=== PATIENT | female | born 1950 | race Caucasian/White ===

== ENCOUNTER → 2017-07-26 | Outpatient (CLI) | payer MEDICARE, BC ==
--- NOTE | 2017-07-26 16:13 | RAD ---
Thyroid ultrasound, 07/26/2017: History: Thyroid enlargement The thyroid gland is small and not clearly defined on this study. No mass was identified in the thyroid region. If clinical concern persists, CT scanning is suggested for further evaluation.
== END | disposition home or self-care (01) ==
LOC: US 13:58
PROVIDERS: ATTEND Nurse Practitioner Family
DX: E04.8 Other specified nontoxic goiter (principal)
CPT/HCPCS: 76536

== ENCOUNTER 2018-02-16 08:22 | Inpatient (IN) | payer MEDICARE, BC ==
[~2018-02-16] VITALS: Ht 170.2 cm; Wt 108.0 kg
[2018-02-16 09:08] VITALS: BP 154/74
[2018-02-16 09:26] LABS: BASO # 0.1 x10^3/uL (0.0-0.2); BASO % 0 % (0-3); EOS # 0.6 x10^3/uL (0.0-0.7); EOS % 5 % (0-3); HEMOGLOBIN 14.2 g/dL (12.0-15.5); LYMPH # 1.4 x10^3/uL (1.0-4.8); LYMPH % 11 % (24-48); MEAN CORPUSCULAR HEMOGLOBIN 29 pg (25-35); MEAN CORPUSCULAR HGB CONC 33 g/dL (31-37); MEAN CORPUSCULAR VOLUME 89 fL (79-100); MONO # 0.8 x10^3/uL (0.0-1.1); MONO % 6 % (0-9); NEUT % 78 % (31-73); PLATELET COUNT 238 x10^3/uL (140-400); RED BLOOD COUNT 4.83 x10^6/uL (3.50-5.40); RED CELL DISTRIBUTION WIDTH 14.1 % (11.5-14.5); WHITE BLOOD COUNT 12.8 x10^3/uL (4.0-11.0)
[2018-02-16 09:39] LABS: ALBUMIN 3.7 g/dL (3.4-5.0); ALBUMIN/GLOBULIN RATIO 0.9 (1.0-1.7); CREATININE 0.8 mg/dL (0.6-1.0); GFR 70.9; POTASSIUM 3.7 mmol/L (3.5-5.1); TOTAL BILIRUBIN 0.3 mg/dL (0.2-1.0); TOTAL PROTEIN 7.8 g/dL (6.4-8.2)
[2018-02-16] MEDS ORDERED: ZOLPIDEM 5 MG TABLET. PO PRN (09:45)
[2018-02-16] MEDS ORDERED: methylPREDNISolone SOD SUCC PF 125 MG/2 ML VIAL. IV ONE (10:00)
[2018-02-16] MEDS: DOXYCYCLINE HYCLATE 100 MG TABLET PO SCH ×2 (10:13→20:57)
[2018-02-16] MEDS: IPRATRPIUM/ALBUTEROL 0.5/2.5MG 3 ML NEBU. NEB SCH ×4 (10:29→20:31)
--- NOTE | 2018-02-16 10:48 | RAD ---
Chest, 2 views, 02/16/2018: HISTORY: Shortness of breath The heart size is normal. There are a few scattered parenchymal scars. No pulmonary consolidation is seen. There is no evidence of pleural fluid. Moderate hypertrophic spurring is present in the spine. IMPRESSION: No acute cardiopulmonary abnormality is detected. Electronically signed by: Fazal Morejon MD (02/16/2018 10:45 AM) [facility]
[2018-02-16 11:05] LABS: INFLUENZA A PATIENT NEGATIVE (NEGATIVE); INFLUENZA B PATIENT NEGATIVE (NEGATIVE)
[2018-02-16] MEDS ORDERED: IOHEXOL 300 MG/ML 75 ML VIAL. IV ONE (11:30)
[2018-02-16] MEDS ORDERED: AMLO10TA6 PO (12:14)
[2018-02-16] MEDS ORDERED: IRBE1TAB5 PO (12:14)
[2018-02-16] MEDS ORDERED: ALBU8.5H8 INH (12:14)
[2018-02-16] MEDS ORDERED: LEVO150T5 PO (12:14)
[2018-02-16] MEDS ORDERED: MONT10TA9 PO (12:14)
[2018-02-16] MEDS ORDERED: BUDE10.22 IH (12:14)
[2018-02-16] MEDS ORDERED: CHOL500016 PO (12:16)
[2018-02-16] MEDS ORDERED: ASPI-630 PO (12:16)
[2018-02-16] MEDS ORDERED: GLUC100018 PO (12:16)
--- NOTE | 2018-02-16 12:39 | RAD ---
PQRS Compliance Statement: One or more of the following individualized dose reduction techniques were utilized for this examination: 1. Automated exposure control 2. Adjustment of the mA and/or kV according to patient size 3. Use of iterative reconstruction technique CT CHEST WITH CONTRAST, PULMONARY ANGIOGRAM History: SHORT OF AIR, ELEVATED D-DIMER. Comparison: None. Technique: Helical CT of the chest was performed after the administration of 75 cc Omnipaque 300 intravenous contrast according to PE protocol. Axial and coronal reconstructions were obtained. 3-D MIP images were constructed to better evaluate the pulmonary arteries. Findings: Pulmonary arteries are adequately opacified to the segmental pulmonary artery level. There is no evidence of pulmonary embolism. Subsegmental pulmonary arteries cannot be accurately evaluated. No thoracic aortic dissection. The great vessels are normal caliber. There is coronary artery disease. There is mitral annular calcification. The breasts are incompletely imaged. There are 4 small oval or round nodules in the left breast. There is no axillary adenopathy. Bilateral hilar lymph nodes are upper limits of normal. Cardiac size is normal, no pericardial effusion. There is no pleural effusion. Central airways are patent. Respiratory motion artifact limits evaluation of the lungs. There is a 5 mm nodule in the right middle lobe, image 66. There is a 5 mm nodule in the anterior right lower lobe, image 73. There is minimal atelectasis in the posterior right lower lobe. There is bilateral lower lobe peribronchial thickening. 5 mm irregular nodule in the posterior left upper lobe, image 32. Atelectasis or scarring in the inferior lingula. 6 mm nodule in the left lower lobe posteriorly, image 73. 3 mm nodule left lower lobe, image 59. Cholecystectomy. No compression fracture in the thoracic spine. IMPRESSION: 1. There is no CT evidence of pulmonary embolus to the segmental pulmonary artery level. 2. Mild bilateral lower lobe bronchitis. 3. There are several noncalcified pulmonary nodules bilaterally. Suggest noncontrast CT chest follow-up in 12 months per Fleischner Society guidelines. 4. There are 4 small oval or round nodules in the left breast. Recommend further evaluation with outpatient bilateral mammogram if not recently performed. Electronically signed by: Obie Alcantara MD (02/16/2018 12:35 PM) [id number]
[2018-02-16] MEDS ORDERED: ALBUTEROL SULFATE 8GM INHALER. INH PRN (12:45)
[2018-02-16 13:48] VITALS: BP 169/70
[2018-02-16] MEDS: ALBUTEROL SULFATE 2.5 MG/3 ML NEBU. NEB PRN (13:51)
[2018-02-16] MEDS: methylPREDNISolone SOD SUCC PF 40 MG/ML VIAL. IV SCH ×2 (13:52→22:27)
[2018-02-16] MEDS: LOSARTAN 50 MG TABLET. PO SCH (13:53)
[2018-02-16] MEDS: ASPIRIN 81 MG TAB.CHEW PO SCH (13:53)
[2018-02-16] MEDS: hydroCHLOROthiazide 12.5 MG CAPSULE PO SCH (13:53)
[2018-02-16] MEDS: amLODIPine BESYLATE 10 MG TABLET PO SCH (13:53)
[2018-02-16] MEDS: LEVOTHYROXINE 150 MCG TABLET PO SCH (16:45)
[2018-02-16] MEDS ORDERED: ALBUTEROL SULFATE 2.5 MG/3 ML NEBU. NEB SCH (18:00)
[2018-02-16 20:15] VITALS: BP 124/70
[2018-02-16] MEDS: BUDESONIDE 0.5 MG/2 ML NEBU NEB SCH (20:31)
[2018-02-16] MEDS: MONTELUKAST 10 MG TABLET. PO SCH (20:57)
[2018-02-16] MEDS: LACTOBACILLUS RHAMNOSUS GG 1 CAPSULE. PO SCH (20:57)
[2018-02-16] MEDS ORDERED: NON FORMULARY ITEM (Budesonide/Formoterol Fumarate (Symbicort 80-4.5 Mcg Inhaler) 2 PUFF) IH SCH (21:00)
[2018-02-16 23:01] VITALS: BP 143/71
[2018-02-17] MEDS: IPRATRPIUM/ALBUTEROL 0.5/2.5MG 3 ML NEBU. NEB SCH ×4 (04:21→21:05)
[2018-02-17] MEDS: ACETAMINOPHEN 500 MG TABLET PO PRN (04:21)
[2018-02-17] MEDS ORDERED: LEVOTHYROXINE 150 MCG TABLET PO SCH (06:00)
[2018-02-17 06:05] VITALS: BP 137/73
[2018-02-17] MEDS: methylPREDNISolone SOD SUCC PF 40 MG/ML VIAL. IV SCH ×3 (06:29→22:16)
[2018-02-17] MEDS: LEVOTHYROXINE 150 MCG TABLET PO SCH (06:29)
[2018-02-17 06:56] LABS: BASO % 0 % (0-3); EOS % 0 % (0-3); HEMATOCRIT 42.6 % (36.0-47.0); LYMPH # 1.2 x10^3/uL (1.0-4.8); LYMPH % 6 % (24-48); MEAN CORPUSCULAR HEMOGLOBIN 29 pg (25-35); MEAN CORPUSCULAR HGB CONC 33 g/dL (31-37); MEAN CORPUSCULAR VOLUME 89 fL (79-100); MONO # 0.5 x10^3/uL (0.0-1.1); MONO % 2 % (0-9); NEUT # 18.1 x10^3uL (1.8-7.7); NEUT % 91 % (31-73); PLATELET COUNT 277 x10^3/uL (140-400); RED BLOOD COUNT 4.78 x10^6/uL (3.50-5.40); RED CELL DISTRIBUTION WIDTH 14.3 % (11.5-14.5); WHITE BLOOD COUNT 19.8 x10^3/uL (4.0-11.0)
[2018-02-17 07:24] LABS: CALCIUM 9.3 mg/dL (8.5-10.1); CREATININE 0.8 mg/dL (0.6-1.0); GFR 70.9; POTASSIUM 3.9 mmol/L (3.5-5.1)
[2018-02-17 07:50] LABS: % BANDS 6 % (0-9); % BASOS 0 % (0-3); % EOS 0 % (0-5); % LYMPHS 5 % (24-48); % MONOS 1 % (0-10); % SEGS 88 % (35-66); PLT ESTIMATE ADEQUATE (ADEQUATE)
[2018-02-17] MEDS: LACTOBACILLUS RHAMNOSUS GG 1 CAPSULE. PO SCH ×2 (08:51→22:28)
[2018-02-17] MEDS: hydroCHLOROthiazide 12.5 MG CAPSULE PO SCH (08:51)
[2018-02-17] MEDS: amLODIPine BESYLATE 10 MG TABLET PO SCH (08:51)
[2018-02-17] MEDS: LOSARTAN 50 MG TABLET. PO SCH (08:51)
[2018-02-17] MEDS: CHOLECALCIFEROL (VITAMIN D3) 1,000 UNIT TABLET PO SCH (08:52)
[2018-02-17] MEDS: DOXYCYCLINE HYCLATE 100 MG TABLET PO SCH ×2 (08:52→22:28)
[2018-02-17] MEDS: ASPIRIN 81 MG TAB.CHEW PO SCH (08:52)
[2018-02-17] MEDS: ROFLUMILAST 500 MCG TABLET PO SCH (08:55)
[2018-02-17] MEDS: GLUCOSAMINE 500 MG CAPSULE PO SCH (08:56)
[2018-02-17] MEDS ORDERED: ZOLPIDEM 5 MG TABLET. PO PRN (10:30)
[2018-02-17] MEDS: BUDESONIDE 0.5 MG/2 ML NEBU NEB SCH ×2 (11:11→21:05)
[2018-02-17 12:03] VITALS: BP 135/72
[2018-02-17] MEDS: ALBUTEROL SULFATE 2.5 MG/3 ML NEBU. NEB PRN (14:42)
[2018-02-17 15:19] VITALS: BP 159/69
[2018-02-17 18:59] VITALS: BP 135/67
--- NOTE | 2018-02-17 19:10 | PN ---
DATE: SUBJECTIVE: A 68-year-old female in with acute exacerbation of asthma. The patient's white count went up probably from prednisone. CTA was negative, however, did note some other elements of noncalcified pulmonary nodules. There are 4 cm oval and round nodules in the left breast and those need to be followed up as an outpatient. The patient is breathing better, feels somewhat better. OBJECTIVE: VITAL SIGNS: Blood pressure 159/70, respiratory rate 24, pulse 90, afebrile. The patient's oxygen saturation has been on 2 liters up to 92%. The patient still notes shortness of breath, but she is markedly improved. GENERAL: The patient is alert and oriented. LUNGS: Diminished, clear than they have been, but still markedly diminished. She will be continued to be monitored carefully on that. CARDIOVASCULAR: Regular sinus rhythm. ABDOMEN: Soft, nontender. As noted, improving, but still needs aggressive IV therapy as noted. IMPRESSION: Acute respiratory failure, acute asthma with acute exacerbation, acute bronchitis, morbid obesity, pulmonary nodules, abnormal nodules in the breast. PLAN: Continue to monitor the patient, accordingly make further evaluation on her and continue aggressive therapies for her breathing problems as indicated. ISACC TOLLIVER MD DR: TATIANA/freddie JOB#: [id number] / [id number]
[2018-02-17] MEDS: MONTELUKAST 10 MG TABLET. PO SCH (22:15)
[2018-02-17] MEDS: APIXABAN 5 MG TABLET. PO SCH (22:15)
[2018-02-17 23:00] VITALS: BP 110/62
[2018-02-18 03:00] VITALS: BP 150/76
[2018-02-18] MEDS: IPRATRPIUM/ALBUTEROL 0.5/2.5MG 3 ML NEBU. NEB SCH ×4 (05:49→20:20)
[2018-02-18] MEDS: LEVOTHYROXINE 150 MCG TABLET PO SCH (06:32)
[2018-02-18] MEDS: methylPREDNISolone SOD SUCC PF 40 MG/ML VIAL. IV SCH ×2 (06:33→20:40)
[2018-02-18 06:55] VITALS: BP 165/70
[2018-02-18] MEDS: CHOLECALCIFEROL (VITAMIN D3) 1,000 UNIT TABLET PO SCH (09:00)
[2018-02-18] MEDS: hydroCHLOROthiazide 12.5 MG CAPSULE PO SCH (09:13)
[2018-02-18] MEDS: ACETAMINOPHEN 500 MG TABLET PO PRN ×2 (09:13→20:40)
[2018-02-18] MEDS: DOXYCYCLINE HYCLATE 100 MG TABLET PO SCH ×2 (09:13→20:40)
[2018-02-18] MEDS: LACTOBACILLUS RHAMNOSUS GG 1 CAPSULE. PO SCH ×2 (09:13→20:40)
[2018-02-18] MEDS: ASPIRIN 81 MG TAB.CHEW PO SCH (09:14)
[2018-02-18] MEDS: LOSARTAN 50 MG TABLET. PO SCH (09:14)
[2018-02-18] MEDS: amLODIPine BESYLATE 10 MG TABLET PO SCH (09:14)
[2018-02-18] MEDS: ROFLUMILAST 500 MCG TABLET PO SCH (09:14)
[2018-02-18] MEDS: APIXABAN 5 MG TABLET. PO SCH ×2 (09:15→20:40)
[2018-02-18] MEDS: GLUCOSAMINE 500 MG CAPSULE PO SCH (09:15)
[2018-02-18] MEDS: BUDESONIDE 0.5 MG/2 ML NEBU NEB SCH ×2 (09:54→20:20)
[2018-02-18 11:47] VITALS: BP 172/76
[2018-02-18 16:10] VITALS: BP 161/75
--- NOTE | 2018-02-18 18:52 | PN ---
DATE: SUBJECTIVE: She is still having some wheezing. We are tapering her down on her Solu-Medrol, making fairly good progress. PHYSICAL EXAMINATION: VITAL SIGNS: Blood pressure 118/70, respiratory rate 20, pulse 72, afebrile. GENERAL: The patient is alert and oriented. LUNGS: Diminished. LABORATORY DATA: Primarily some residual wheezing in the bases, but other than that, seems to be making good progress overall. IMPRESSION: Acute bronchitis, acute exacerbation of asthma. ISACC TOLLIVER MD DR: TATIANA/freddie JOB#: [id number] / [id number]
[2018-02-18 19:41] VITALS: BP 157/68
[2018-02-18] MEDS: MONTELUKAST 10 MG TABLET. PO SCH (20:40)
[2018-02-18 23:00] VITALS: BP 167/72
[2018-02-19] MEDS: IPRATRPIUM/ALBUTEROL 0.5/2.5MG 3 ML NEBU. NEB SCH ×2 (05:16→09:29)
[2018-02-19] MEDS: LEVOTHYROXINE 150 MCG TABLET PO SCH (05:24)
[2018-02-19 05:34] VITALS: BP 166/76
[2018-02-19] MEDS: hydroCHLOROthiazide 12.5 MG CAPSULE PO SCH (08:13)
[2018-02-19] MEDS: ACETAMINOPHEN 500 MG TABLET PO PRN (08:13)
[2018-02-19] MEDS: amLODIPine BESYLATE 10 MG TABLET PO SCH (08:14)
[2018-02-19] MEDS: ASPIRIN 81 MG TAB.CHEW PO SCH (08:14)
[2018-02-19] MEDS: DOXYCYCLINE HYCLATE 100 MG TABLET PO SCH (08:14)
[2018-02-19] MEDS: APIXABAN 5 MG TABLET. PO SCH (08:15)
[2018-02-19] MEDS: methylPREDNISolone SOD SUCC PF 40 MG/ML VIAL. IV SCH (08:15)
[2018-02-19] MEDS: ROFLUMILAST 500 MCG TABLET PO SCH (08:15)
[2018-02-19 08:16] VITALS: BP 166/76
[2018-02-19] MEDS: LOSARTAN 50 MG TABLET. PO SCH (08:16)
[2018-02-19] MEDS: LACTOBACILLUS RHAMNOSUS GG 1 CAPSULE. PO SCH (08:32)
[2018-02-19] MEDS: GLUCOSAMINE 500 MG CAPSULE PO SCH (08:32)
[2018-02-19] MEDS: CHOLECALCIFEROL (VITAMIN D3) 1,000 UNIT TABLET PO SCH (08:33)
[2018-02-19] MEDS: BUDESONIDE 0.5 MG/2 ML NEBU NEB SCH (09:30)
[2018-02-19] MEDS ORDERED: PRED5TAB PO (09:54)
[2018-02-19] MEDS ORDERED: LEVO500T59 PO (09:54)
[2018-02-19] MEDS ORDERED: PRED-220 PO (09:59)
[2018-02-20] MEDS ORDERED: LOSARTAN 50 MG TABLET. PO SCH (09:00)
== END 2018-02-19 11:00 | disposition home or self-care (01) | DRG 189 ==
LOC: 1 SOUTH 08:39
PROVIDERS: ADMIT Family Medicine; ATTEND Family Medicine
DX: J96.00 Acute respiratory failure, unspecified whether with hypoxia or hypercapnia (principal); J45.901 Unspecified asthma with (acute) exacerbation; J20.9 Acute bronchitis, unspecified; E66.01 Morbid (severe) obesity due to excess calories; Z68.37 Body mass index [BMI] 37.0-37.9, adult; R91.8 Other nonspecific abnormal finding of lung field
CPT/HCPCS: 36415; 71046; 71275; 80048; 80053; 83605; 85007; 85025; 85379; 87070; 87205; 87804; 94640; J0696; J2920; J2930; J7613; J7620; J7626; Q9967

== ENCOUNTER → 2018-03-25 | Outpatient (CLI) | payer MEDICARE, BC ==
[~2018-03-25] MED LIST: ALBU2.5V8 INH; AMLO10TA6 PO; ASPI-630 PO; BUDE10.22 IH; CHOL500016 PO; GLUC100018 PO; IRBE1TAB5 PO; LEVO150T5 PO; LEVO500T59 PO; MONT10TA9 PO; PRED-220 PO; PRED5TAB PO
--- NOTE | 2018-03-25 16:13 | RAD ---
Right lower extremity venous ultrasound, 03/25/2018 : History: Right leg pain and swelling Duplex evaluation including grayscale, color flow and spectral Doppler analysis was performed. The femoral and popliteal veins show no filling defects to suggest DVT. The visualized deep veins in the right calf are unremarkable. IMPRESSION: There is no sonographic evidence of deep vein thrombosis in the right lower extremity Electronically signed by: Fazal Morejon MD (03/25/2018 3:42 PM) [facility]
== END | disposition home or self-care (01) ==
LOC: US 13:59
PROVIDERS: ATTEND Physician Assistant
DX: M79.89 Other specified soft tissue disorders (principal)
CPT/HCPCS: 93971

== ENCOUNTER → 2018-12-23 | Outpatient (CLI) | payer MEDICARE, BC ==
[~2018-12-23] MED LIST changes: -AMLO10TA6 PO; +AMLO10TA8 PO; +MONT10TA80 PO; -MONT10TA9 PO
--- NOTE | 2018-12-23 15:20 | RAD ---
CT CHEST WO CONTRAST Indication: Lung nodule, former smoker. Exposure: One or more of the following individualized dose reduction techniques were utilized for this examination: 1. Automated exposure control 2. Adjustment of the mA and/or kV according to patient size 3. Use of iterative reconstruction technique. Technique: Standard imaging without intravenous contrast. Comparison: CTA chest of February 16, 2018. FINDINGS: Aorta is calcified and ectatic. No gross aneurysm. Vascular exam otherwise limited without intravenous contrast. Coronary artery calcification. No definite pathologic lymph node enlargement is seen. Evaluation of hilar lymph nodes is compromised however due to the noncontrast technique. No pericardial effusion. No pleural effusion. Numerous small pulmonary nodules are identified throughout both lungs. Largest in the left lung measures 7 mm diameter in the left lower lobe, series 2 image 196.. Largest in the left lung is in lower lobe measuring 6 mm, series 2, image 182. These are overall stable since the prior exam. No new dominant mass is identified. Mild linear atelectasis or scarring in the right middle lobe. Trachea and mainstem bronchi are patent. Small nodules in the left breast are again identified. Degenerative spondylosis. Vertebral body height and alignment is intact. No aggressive bone destruction. Scans through the upper abdomen are limited due to technique. IMPRESSION: 1. Multiple noncalcified pulmonary nodules in both lungs, stable since previous exam. 2. Left breast nodules are again seen, again recommend outpatient mammogram correlation if not performed. Electronically signed by: Nikolas Raymond MD (12/23/2018 3:17 PM) [id number]
== END | disposition home or self-care (01) ==
LOC: CT 10:49
PROVIDERS: ATTEND Internal Medicine Pulmonary Disease
DX: N63.23 Unspecified lump in the left breast, lower outer quadrant (principal); M47.899 Other spondylosis, site unspecified; Z87.891 Personal history of nicotine dependence; I70.0 Atherosclerosis of aorta; I77.819 Aortic ectasia, unspecified site; N63.0 Unspecified lump in unspecified breast
CPT/HCPCS: 71250

== ENCOUNTER → 2019-12-01 | Outpatient (CLI) | payer MEDICARE, BC ==
--- NOTE | 2019-12-01 14:30 | RAD ---
CT CHEST WO CONTRAST Indication: Lung nodule Technique: Noncontrast CT imaging was performed of the chest, multiplanar reconstruction images submitted. One or more of the following individualized dose reduction techniques were utilized for this examination: 1. Automated exposure control 2. Adjustment of the mA and/or kV according to patient size 3. Use of iterative reconstruction technique. Comparison: December 23, 2018; February 16, 2018 Findings: Stable nodules as referenced to series 2 include: 4-5 mm left lower lobe nodule image 219, 3 mm left lower lobe image 230, 4 to 5 mm left lower lobe image 198, 3 mm left lower lobe image 165, 3 mm left upper lobe image 64, 4 to 5 mm left upper lobe image 79, 3 mm left upper lobe image 128, 2 to 3 mm left upper lobe image 148, 5 mm right middle lobe image 189, 4 to 5 mm right middle lobe image 148, 5 mm right lower lobe image 204, 2-3 mm right lower lobe image 198, 4 nodules about 2-3 mm right lower lobe images 188, 177, 166, and 148. 4 to 5 mm right middle lobe nodule image 178 is slightly larger than 2018 exam when measured about 3 mm. No new suspicious pulmonary nodularity is identified. There is mitral annular calcification and coronary calcification. No new significant lymphadenopathy is identified of the chest. There is hepatic steatosis. There is fat-containing ventral hernia in the superior abdomen, neck estimated about 1.3 cm transverse. There has been cholecystectomy. IMPRESSION: 1. No new suspicious pulmonary nodularity is identified. Small right middle lobe nodule is slightly larger than 2018 exam, other nodules similar. 6-12 month follow-up is recommended. 2. There is coronary calcification. 3. There is hepatic steatosis. 4. There is fat-containing ventral hernia in the superior abdomen. Electronically signed by: Chaitanya Will MD (12/01/2019 2:27 PM) [id number]
== END | disposition home or self-care (01) ==
LOC: CT 11:42
PROVIDERS: ATTEND Internal Medicine Pulmonary Disease
DX: R91.8 Other nonspecific abnormal finding of lung field (principal); K43.9 Ventral hernia without obstruction or gangrene; K76.0 Fatty (change of) liver, not elsewhere classified; I25.10 Atherosclerotic heart disease of native coronary artery without angina pectoris; I34.0 Nonrheumatic mitral (valve) insufficiency; Z90.49 Acquired absence of other specified parts of digestive tract
CPT/HCPCS: 71250

== ENCOUNTER → 2020-08-01 | Outpatient (CLI) | payer MEDICARE, BC ==
[~2020-08-01] MED LIST changes: +AMLO-187 PO; -AMLO10TA8 PO
--- NOTE | 2020-08-01 17:41 | RAD ---
EXAM: AP view both knees, lateral and tangential patellar view right knee DATE: 08/01/2020 3:10 PM INDICATION: Reason: KNEE PAIN / Spl. Instructions: / History: . COMPARISON: No Prior FINDINGS: Bilateral knee joint osteoarthritis with severe medial compartment joint space narrowing and prolifer ative changes. Neutral patellar tracking right knee. No right knee joint effusion. Right patellar enthesopathy IMPRESSION: 1. Severe bilateral knee joint osteoarthritis with medial compartment effacement 2. No acute fracture or dislocation. Electronically signed by: Kane Lewis MD (08/01/2020 5:38 PM) [id number]
== END ==
LOC: RAD 14:54
PROVIDERS: ATTEND Orthopaedic Surgery
DX: M17.0 Bilateral primary osteoarthritis of knee (principal)
CPT/HCPCS: 73560; 73565

== ENCOUNTER → 2021-02-28 | Outpatient (CLI) | payer MEDICARE, BC ==
--- NOTE | 2021-03-05 16:17 | RAD ---
Bilateral digital screening 2-D and 3-D (digital breast tomosynthesis) mammogram: Reason for examination: Routine screening. Comparison: Mammogram from 06/19/2014. Left breast ultrasound from 12/11/2016. Interpretation was made with the benefit of CAD. FINDINGS: Breast density: Category B. There are scattered areas of fibroglandular density. No suspicious breast mass, malignant appearing calcifications, or architectural distortion is seen. T here are small oval circumscribed masses in both breasts that are likely due to cysts. One of these i n the 3:30 position left breast has decreased in size. There are small groups of benign punctate/roun ded calcifications in both breasts. IMPRESSION: No evidence of malignancy. Assessment: BI-RADS 2. Benign findings. Recommendation: Routine screening mammograms. The patient will receive a letter with the results in the mail. Patient information will be entered i nto the mammography reminder system with a target recall date for the next mammogram. A reminder lilo er will be generated. Electronically signed by: Madie Tello MD (03/05/2021 4:15 PM) [id number]
== END ==
LOC: MAMMO 14:36
PROVIDERS: ATTEND Family Medicine
DX: Z12.31 Encounter for screening mammogram for malignant neoplasm of breast (principal)
CPT/HCPCS: 77063; 77067